=== PATIENT | female | born 1985 | race Caucasian/White ===

== ENCOUNTER 2016-05-25 16:28 | Emergency (ER) | payer MEDICAID ==
[2016-05-25] MEDS ORDERED: SODIUM CHLORIDE 0.9% 1,000 ML IV ONE (16:55)
[2016-05-25] MEDS ORDERED: MAGNESIUM SULFATE 2 GRAM 50 ML IV ONE ×2 (16:55→16:59)
[2016-05-25] MEDS ORDERED: diphenhydrAMINE INJ 50 MG/ML VIAL IVP STA (17:01)
[2016-05-25] MEDS ORDERED: PROCHLORPERAZINE 10 MG/2 ML VIAL IVP STA (17:01)
[2016-05-25] MEDS ORDERED: KETOROLAC 30 MG/ML VIAL IVP STA (17:01)
[2016-05-25] MEDS ORDERED: PROCHLORPERAZINE 10 MG/2 ML VIAL ONE (17:10)
[2016-05-25] MEDS ORDERED: diphenhydrAMINE INJ 50 MG/ML VIAL ONE (17:10)
[2016-05-25] MEDS ORDERED: KETOROLAC 30 MG/ML VIAL ONE (17:10)
== END 2016-05-25 18:30 | disposition home or self-care (01) ==
DX: G43.909 Migraine, unspecified, not intractable, without status migrainosus (principal); F17.200 Nicotine dependence, unspecified, uncomplicated

== ENCOUNTER 2016-08-19 08:00 | Outpatient (CLI) | payer MEDICAID ==
[2016-08-22 15:48] LABS: TEST RESULT REPORT (())
== END 2016-08-19 08:01 | disposition home or self-care (01) ==
LOC: LAB.R 08:00
PROVIDERS: ATTEND Nurse Practitioner Family
DX: R19.7 Diarrhea, unspecified (principal)
CPT/HCPCS: 81599

== ENCOUNTER 2016-08-19 11:03 | Outpatient (CLI) | payer MEDICAID | END 2016-08-19 11:04 | disposition home or self-care (01) | DX: R19.7 Diarrhea, unspecified (principal) ==

== ENCOUNTER 2017-07-17 20:09 | Emergency (ER) | payer MEDICAID ==
--- NOTE | 2017-07-17 21:04 | ED Physician Documentation ---
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 HEENT: Tonsil/Adenoidectomy - Present Medications Home Medications: Ambulatory Orders Medication Instructions Recorded Confirmed Cephalexin [Keflex] 500 mg PO QID #27 capsule 07/17/17 oxyCODONE [Roxicodone] 5 mg PO Q4-6H PRN #14 tablet 07/17/17 - Allergies Allergies/Adverse Reactions: Allergies Allergy/AdvReac Type Severity Reaction Status Date / Time acetaminophen [From Tylenol] Allergy Severe Edema Verified 07/17/17 20:14 meperidine HCl * Allergy Severe Edema Verified 07/17/17 20:27 [From Demerol] Penicillins Allergy Intermediate Rash Verified 07/17/17 20:14 amitriptyline [Amitriptyline] AdvReac Severe Dizziness Verified 07/17/17 20:14 - Social History Does the pt smoke?: Yes Smoking Status: Current every day smoker Does the pt drink ETOH?: Yes ETOH Use: Liquor Does the pt have substance abuse?: Yes Substance Use and Type: Marijuana - Immunizations Immunizations are current?: Yes - POLST Patient has POLST: No Results - Vitals Vitals: Vital Signs - 24 hr 07/17/17 20:12 Temperature 36.0 C L Heart Rate 98 Respiratory 18 Rate Blood Pressure 158/101 H O2 Saturation 100 Oxygen O2 Source Room air Departure - Departure Disposition: 01 Home, Self Care Clinical Impression: Pain, dental Condition: Good Instructions: ED Tooth Pain Prescriptions: Cephalexin [Keflex] 500 mg PO QID #27 capsule oxyCODONE [Roxicodone] 5 mg PO Q4-6H PRN #14 tablet PRN Reason: Pain Comments: Follow up with a dentist.
--- NOTE | 2017-07-17 21:26 | ED Physician Documentation ---
PD HPI HEENT - Stated complaint Stated Complaint: TOOTHACHE - Chief complaint Chief Complaint: Heent - History obtained from History obtained from: Patient - History of Present Illness Timing - onset: How many weeks ago (1) Timing - details: Gradual onset Pain level now: 7 Location: Tooth Improves: Nothing Associated symptoms: No: Fever Recently seen: Not recently seen - Additional information Additional information: c/o 1 week dental pain right upper. 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 HEENT: Tonsil/Adenoidectomy - Present Medications Home Medications: Ambulatory Orders Medication Instructions Recorded Confirmed Cephalexin [Keflex] 500 mg PO QID #27 capsule 07/17/17 oxyCODONE [Roxicodone] 5 mg PO Q4-6H PRN #14 tablet 07/17/17 - Allergies Allergies/Adverse Reactions: Allergies Allergy/AdvReac Type Severity Reaction Status Date / Time acetaminophen [From Tylenol] Allergy Severe Edema Verified 07/17/17 20:14 meperidine HCl * Allergy Severe Edema Verified 07/17/17 20:27 [From Demerol] Penicillins Allergy Intermediate Rash Verified 07/17/17 20:14 amitriptyline [Amitriptyline] AdvReac Severe Dizziness Verified 07/17/17 20:14 - Social History Does the pt smoke?: Yes Smoking Status: Current every day smoker Does the pt drink ETOH?: Yes ETOH Use: Liquor Does the pt have substance abuse?: Yes Substance Use and Type: Marijuana - Immunizations Immunizations are current?: Yes - POLST Patient has POLST: No PD ED PE NORMAL - Vitals Vital signs reviewed: Yes - General General: Alert and oriented X 3, No acute distress, Well developed/nourished - HEENT HEENT: Moist mucous membranes, Other (no swelling noted externally) PD ED PE EXPANDED - HEENT HEENT Visual: 1 - swelling, tenderness Results - Vitals Vitals: Oxygen O2 Source Room air PD MEDICAL DECISION MAKING - ED course Complexity details: considered differential, d/w patient Departure - Departure Disposition: 01 Home, Self Care Clinical Impression: Pain, dental Condition: Good Instructions: ED Tooth Pain Prescriptions: Cephalexin [Keflex] 500 mg PO QID #27 capsule oxyCODONE [Roxicodone] 5 mg PO Q4-6H PRN #14 tablet PRN Reason: Pain Comments: Follow up with a dentist. Discharge Date/Time: 07/17/17 21:36
[2017-07-17] MEDS ORDERED: oxyCODONE 5 MG TABLET PO STA (21:31)
[2017-07-17] MEDS ORDERED: cephALEXin 250 MG CAPSULE PO STA (21:32)
[2017-07-17 21:33] VITALS: BP 131/71
== END 2017-07-17 21:36 | disposition home or self-care (01) ==
LOC: ED 20:09
DX: K08.89 Other specified disorders of teeth and supporting structures (principal); F17.200 Nicotine dependence, unspecified, uncomplicated
CPT/HCPCS: 99283; A9270

== ENCOUNTER 2017-08-03 16:18 | Emergency (ER) | payer MEDICAID ==
--- NOTE | 2017-08-03 17:48 | ED Physician Documentation ---
PD HPI SKIN - Stated complaint Stated Complaint: LFT CALF PX/RASH - Chief complaint Chief Complaint: Wound - History obtained from History obtained from: Patient - History of Present Illness Timing - onset: Yesterday Timing - duration: Days (1) Timing - details: Gradual onset, Still present Location: LLE Quality / character: Itchy, Discolored, Raised, Swelling Contributing factors: Other (had a tattoo placed 4 days ago) Similar symptoms before: Has not had sx before Recently seen: Not recently seen - Additional information Additional information: 31-year-old female had a tattoo placed on her calf 4 days ago and yesterday she began developed some redness and itching to the area she has this reaction only to the top portion of the tattoo. There are areas of the color pigment that appear involved with a reaction but the remaining of the involved in this looks entirely normal. 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 HEENT: Tonsil/Adenoidectomy - Present Medications Home Medications: Ambulatory Orders Medication Instructions Recorded Confirmed Cephalexin [Keflex] 500 mg PO QID #28 capsule 08/03/17 Sulfamethoxazole/Trimethoprim 1 each PO BID #14 tablet 08/03/17 [Sulfamethoxazole-Tmp Ds Tablet] - Allergies Allergies/Adverse Reactions: Allergies Allergy/AdvReac Type Severity Reaction Status Date / Time acetaminophen [From Tylenol] Allergy Severe Edema Verified 08/03/17 16:51 meperidine HCl * Allergy Severe Edema Verified 08/03/17 16:51 [From Demerol] Penicillins Allergy Intermediate Rash Verified 08/03/17 16:51 amitriptyline [Amitriptyline] AdvReac Severe Dizziness Verified 08/03/17 16:51 - Social History Does the pt smoke?: Yes Smoking Status: Current every day smoker Does the pt drink ETOH?: Yes Does the pt have substance abuse?: Yes Substance Use and Type: Marijuana - Immunizations Immunizations are current?: Yes - POLST Patient has POLST: No PD ED PE NORMAL - Vitals Vital signs reviewed: Yes (hypertensive ) - General General: Alert and oriented X 3, No acute distress, Well developed/nourished - HEENT HEENT: Atraumatic, PERRL - Respiratory Respiratory: No respiratory distress - Derm Derm: Normal color, Warm and dry, No rash - Extremities Extremities: No deformity, No edema, Other (There is an area approximately 4 cm round in the superior portion of the tattoo that has been recently placed that is erythematous and boggy. There is reaction in the pigment portion of this and this is only in the area where the erythema is. The other portion of the tattoo looks entirely normal.) - Neuro Neuro: Alert and oriented X 3, No motor deficit, No sensory deficit, Normal speech Eye Opening: Spontaneous Motor: Obeys Commands Verbal: Oriented GCS Score: 15 - Psych Psych: Normal mood, Normal affect Results - Vitals Vitals: Vital Signs - 24 hr 08/03/17 08/03/17 16:23 17:48 Temperature 36.6 C 36.4 C L Heart Rate 97 82 Respiratory 16 17 Rate Blood Pressure 129/95 H 141/63 H O2 Saturation 94 98 Oxygen O2 Source Room air PD MEDICAL DECISION MAKING - ED course Complexity details: considered differential, d/w patient ED course: 31-year-old female with cellulitis to a recently placed tattoo does not appear to have reaction to the pigment itself. She is placed on Septra and Keflex and is expected to improve rapidly. Departure - Departure Disposition: 01 Home, Self Care Clinical Impression: Cellulitis Qualifiers: Site of cellulitis: extremity Site of cellulitis of extremity: lower extremity Laterality: left Qualified Code(s): L03.116 - Cellulitis of left lower limb Condition: Stable Instructions: ED Infec Skin Cellulitis Follow-Up: [facility] [Provider Group] Prescriptions: Cephalexin [Keflex] 500 mg PO QID #28 capsule Sulfamethoxazole/Trimethoprim [Sulfamethoxazole-Tmp Ds Tablet] 1 each PO BID # 14 tablet
[2017-08-03 17:49] VITALS: BP 141/63
[2017-08-03] MEDS ORDERED: CEPHALEXIN 250 MG Prepack 8 PO ONE (17:49)
[2017-08-03] MEDS ORDERED: SULFAM/TRIM 800/160 Prepack 2 PO ONE (17:49)
== END 2017-08-03 18:11 | disposition home or self-care (01) ==
LOC: ED 16:18
DX: L03.116 Cellulitis of left lower limb (principal); F17.200 Nicotine dependence, unspecified, uncomplicated
CPT/HCPCS: 99283

== ENCOUNTER 2021-05-26 17:52 | Emergency (ER) | payer MEDICAID ==
[2021-05-26 18:04] VITALS: BP 137/88
[2021-05-26] MEDS ORDERED: CLINDAMYCIN 150 MG CAPSULE PO STA (18:11)
--- NOTE | 2021-05-26 18:13 | ED Physician Documentation ---
History of Present Illness - Stated complaint Stated Complaint: MOUTH PAIN - Chief complaint Chief Complaint: Trauma Hd/Nk - History obtained from History obtained from: Patient (35-year-old woman with about 2 and half weeks of worsening and severe left mandibular dental pain with mild swelling. 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 HEENT: Tonsil/Adenoidectomy - Present Medications Home Medications: Ambulatory Orders Medication Instructions Recorded Confirmed Naproxen Sodium [Aleve] 1 tab ORAL Q6HR 05/26/21 05/26/21 clindamycin HCL [Cleocin HCl] 300 mg PO QID #28 cap 05/26/21 oxyCODONE [Roxicodone] 5 mg PO Q4-6H PRN #15 tablet 05/26/21 - Allergies Allergies/Adverse Reactions: Allergies Allergy/AdvReac Type Severity Reaction Status Date / Time acetaminophen [From Tylenol] Allergy Severe Edema Verified 08/03/17 16:51 meperidine HCl * Allergy Severe Edema Verified 08/03/17 16:51 [From Demerol] Penicillins Allergy Intermediate Rash Verified 08/03/17 16:51 amitriptyline [Amitriptyline] AdvReac Severe Dizziness Verified 08/03/17 16:51 - Social History Does the pt smoke?: Yes Smoking Status: Current every day smoker Does the pt drink ETOH?: Yes Does the pt have substance abuse?: Yes - Immunizations Immunizations are current?: Yes - POLST Patient has POLST: No PD ED PE NORMAL - Vitals Vital signs reviewed: Yes - General General: Alert and oriented X 3 - HEENT HEENT: Other (Is uncomfortable, her teeth actually do not look that bad but is quite tender to the last remaining mandibular molar on the left. No sublingual edema or facial swelling, no trismus.) - Neck Neck: Supple, no meningeal sign, No bony TTP - Neuro Neuro: Alert and oriented X 3, Normal speech Results - Vitals Vitals: Vital Signs - 24 hr 05/26/21 18:00 Temperature 37.4 C Heart Rate 102 H Respiratory 18 Rate Blood Pressure 137/88 H O2 Saturation 97 Oxygen O2 Source Room air Departure - Departure Disposition: 01 Home, Self Care Clinical Impression: Pain, dental Condition: Good Record reviewed to determine appropriate education?: Yes Instructions: ED Abscess Tooth Prescriptions: clindamycin HCL [Cleocin HCl] 300 mg PO QID #28 cap oxyCODONE [Roxicodone] 5 mg PO Q4-6H PRN #15 tablet PRN Reason: Pain Comments: I sent your prescriptions electronically to [email or web address] in [place]. I am prescribing a short course of narcotic pain medication for you. These are potentially dangerous and addictive medications that should be used carefully. These medications may constipate you. Take an qach-tvk-ctpifly stool softener (docusate) twice daily with plenty of water while taking these medications. If you go 24 hours without a bowel movement, take ohhk-lgv-[id number] miralax, per package instructions. Do not drink or drive while taking these medications. If you received narcotic or sedating medications while in the emergency department, do not drive for 24 hours. Store this medication in a safe, secure place and out of reach of children. It is a violation of federal law to give or sell this medication to another person or to use in a manner other than prescribed. The ED will not refill narcotic prescriptions, including prescriptions lost or stolen. To dispose of unwanted medications: 1. [facility] [address] in [place] has a medication drop box. They accept prescription medications (in pill form) Friday through Friday 9:00 a.m. to 5:00 p.m. 2. [facility] [employer] accepts prescription medications (in pill form only) for disposal year round. Call for more information. 3. Contact the [facility] for the next [facility] sponsored prescription drug collection event. , [phone], or [phone]; Note that many narcotic pain relievers also contain Tylenol/acetaminophen. Please ensure that your total dose of acetaminophen from all sources does not exceed 3 g (3000 mg) per day. It is very important that you follow-up with a dentist. When it comes to dental problems like yours, the emergency department can only offer a short-term solution to your long-term problem. A couple of low cost options for dental care include: [facility] in [place], calls [phone] for an appointment Or [facility] in [place], call [phone] for an appointment.
== END 2021-05-26 18:17 | disposition home or self-care (01) ==
LOC: ED 17:52
DX: K08.89 Other specified disorders of teeth and supporting structures (principal); F17.200 Nicotine dependence, unspecified, uncomplicated
CPT/HCPCS: 99281; 99282; A9270

== ENCOUNTER 2021-06-05 09:35 | Emergency (ER) | payer MEDICAID ==
[2021-06-05 09:47] VITALS: BP 146/97
--- NOTE | 2021-06-05 09:47 | ED Physician Documentation ---
PD HPI LOWER EXT INJURY - Stated complaint Stated Complaint: RT FT TOE INJ - Chief complaint Chief Complaint: Ext Problem - History obtained from History obtained from: Patient - History of Present Illness PD HPI LOW EXT INJURY LOCATION: Right, Foot, Toe (base of great toe) Type of injury: Blunt / blow (stumbled and almost fell, with toe jamming into concrete. Pain base of great toe after and worse today.) Timing - onset: Yesterday Timing - details: Abrupt onset, Still present Worsened by: Moving, Palpating Associated symptoms: Swelling. 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 HEENT: Tonsil/Adenoidectomy - Present Medications Home Medications: Ambulatory Orders Medication Instructions Recorded Confirmed Naproxen Sodium [Aleve] 1 tab ORAL Q6HR 05/26/21 05/26/21 clindamycin HCL [Cleocin HCl] 300 mg PO QID #28 cap 05/26/21 oxyCODONE [Roxicodone] 5 mg PO Q4-6H PRN #15 tablet 05/26/21 - Allergies Allergies/Adverse Reactions: Allergies Allergy/AdvReac Type Severity Reaction Status Date / Time acetaminophen [From Tylenol] Allergy Severe Edema Verified 06/05/21 09:42 meperidine HCl * Allergy Severe Edema Verified 06/05/21 09:42 [From Demerol] Penicillins Allergy Intermediate Rash Verified 06/05/21 09:42 amitriptyline [Amitriptyline] AdvReac Severe Dizziness Verified 06/05/21 09:42 - Social History Does the pt smoke?: Yes Smoking Status: Current every day smoker Does the pt drink ETOH?: Yes Does the pt have substance abuse?: Yes - Immunizations Immunizations are current?: Yes - POLST Patient has POLST: No PD ED PE NORMAL - Vitals Vital signs reviewed: Yes - General General: Alert and oriented X 3, No acute distress (but does seem uncomfortable due to toe movement, walking to room favoring no pressure on toes. ), Well developed/nourished - Derm Derm: Normal color, Warm and dry - Extremities Extremities: Other (right great toe tender at proximal toe and MTP area without obvious deformity. No redness of the skin. Ankle and proximal foot not tender. ) - Neuro Neuro: Alert and oriented X 3, No motor deficit, Normal speech Results - Vitals Vitals: Vital Signs - 24 hr 06/05/21 09:42 Temperature 36.7 C Heart Rate 84 Respiratory 18 Rate Blood Pressure 146/97 H O2 Saturation 99 Oxygen O2 Source Room air - Rads (name of study) right foot Radiology: Prelim report reviewed (no fractures (some chronic cortical irregularity, does not appear acute fracture).), See rad report PD MEDICAL DECISION MAKING - ED course Complexity details: reviewed results, considered differential, d/w patient Departure - Departure Disposition: 01 Home, Self Care Clinical Impression: Toe sprain Qualifiers: Encounter type: initial encounter Qualified Code(s): S93.509A - Unspecified sprain of unspecified toe(s), initial encounter Condition: Stable Record reviewed to determine appropriate education?: Yes Instructions: ED Sprain Foot Comments: At the great toe. Activity as tolerated. Rest today and tomorrow. Ice elevate and rest the foot often today. Ibuprofen or naproxen 2-3 times daily for the next several days. No fractures are seen on your x-ray. I would anticipate improvement over the next few days. Forms: Activity restrictions Discharge Date/Time: 06/05/21 10:13
[2021-06-05] MEDS ORDERED: IBUPROFEN 800 MG TABLET PO STA (09:59)
--- NOTE | 2021-06-05 10:32 | XRAY Report ---
PROCEDURE: Foot 3 View RT INDICATIONS: Trauma TECHNIQUE: 3 views of the foot were acquired. COMPARISON: None FINDINGS: Bones: Minimal cortical irregularity over the medial margin of the proximal margin of the right grea t toe distal phalanx. It appears to be corticated and likely chronic. Otherwise, no definite acute fr actures. No dislocations. Bipartite medial sesamoid. No suspicious bony lesions. Small plantar calc aneal spur. Soft tissues: No tibiotalar joint effusion. Achilles tendon appears normal. Right forefoot soft ti ssue swelling. IMPRESSION: Soft tissue swelling of the right foot without definite fracture. Normal alignment. Minimal cortical irregularity over the medial margin at the base of the right great toe distal phalanx. This appears c hronic but recommend correlation with visible examination for point tenderness. If there is persistent clinical concern for a radiographically occult fracture, recommend immobilizat ion and repeat imaging in 10 to 14 days. Reviewed by: Adrian Flores MD on 06/05/2021 10:31 AM [facility] Approved by: Adrian Flores MD on 06/05/2021 10:31 AM PST Station ID: [id number]
== END 2021-06-05 10:13 | disposition home or self-care (01) ==
LOC: ED 09:35
DX: S93.509A Unspecified sprain of unspecified toe(s), initial encounter (principal); W22.09XA Striking against other stationary object, initial encounter; F17.200 Nicotine dependence, unspecified, uncomplicated
CPT/HCPCS: 73630; 99282; 99283; A9270

== ENCOUNTER 2022-10-21 15:03 | Emergency (ER) | payer MEDICAID ==
[2022-10-21 15:19] VITALS: BP 148/71
--- NOTE | 2022-10-21 15:32 | XRAY Report ---
PROCEDURE: Foot 3 View LT INDICATIONS: Trauma TECHNIQUE: 3 views of the foot were acquired. COMPARISON: None. FINDINGS: Bones: No fractures or dislocations. No suspicious bony lesions. Soft tissues: No suspicious soft tissue calcifications or masses. IMPRESSION: No acute bony abnormality. Reviewed by: Manny Walters on 10/21/2022 3:31 PM PDT Approved by: Manny Walters on 10/21/2022 3:31 PM PDT Station ID: [id number]
--- NOTE | 2022-10-21 15:56 | ED Physician Documentation ---
PD HPI LOWER EXT INJURY - Stated complaint Stated Complaint: LT FOOT INJ - Chief complaint Chief Complaint: Trauma Ext - History obtained from History obtained from: Patient - Additional information Additional information: She stepped wrong yesterday and injured the medial side of her left foot. She did not fall. Pain is moderate to severe. She has allergies to both Tylenol and ibuprofen. No other injuries. 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 HEENT: Tonsil/Adenoidectomy - Present Medications Home Medications: Ambulatory Orders Medication Instructions Recorded Confirmed Naproxen Sodium [Aleve] 1 tab ORAL Q6HR 05/26/21 05/26/21 clindamycin HCL [Cleocin HCl] 300 mg PO QID #28 cap 05/26/21 oxyCODONE [Roxicodone] 5 mg PO Q4-6H PRN #15 tablet 05/26/21 oxyCODONE [Roxicodone] 5 mg PO Q4-6H PRN #15 tablet 10/21/22 - Allergies Allergies/Adverse Reactions: Allergies Allergy/AdvReac Type Severity Reaction Status Date / Time acetaminophen [From Tylenol] Allergy Severe Edema Verified 06/05/21 09:42 meperidine HCl * Allergy Severe Edema Verified 06/05/21 09:42 [From Demerol] Penicillins Allergy Intermediate Rash Verified 06/05/21 09:42 amitriptyline [Amitriptyline] AdvReac Severe Dizziness Verified 06/05/21 09:42 - Social History Does the pt smoke?: Yes Smoking Status: Current every day smoker Does the pt drink ETOH?: Yes Does the pt have substance abuse?: Yes - Immunizations Immunizations are current?: Yes - POLST Patient has POLST: No PD ED PE NORMAL - Vitals Vital signs reviewed: Yes - General General: Alert and oriented X 3, No acute distress - Extremities Extremities: Other (She is focally tender over the medial foot proximally kind of over the tibialis anterior tendon. There is no deformity. No ankle tenderness. She is a lot of pain with forced external rotation of the left foot. Normal DP/PT pulses.) - Neuro Neuro: Alert and oriented X 3, Normal speech Results - Vitals Vitals: Vital Signs - 24 hr 10/21/22 15:12 Temperature 36.5 C Heart Rate 62 Respiratory 16 Rate Blood Pressure 148/71 H O2 Saturation 97 Oxygen O2 Source Room air - Rads (name of study) Three-view x-ray left foot is normal Relevant Findings:: Final report received, EMP independent interpretation of test PD Medical Decision Making - ED course ED course: Seems like a tibialis anterior tendinitis with negative x-ray. Placed in a walking boot and she requested some prescription pain medication noting that she cannot take ibuprofen or Tylenol. She also needed a work note for light duty. Departure - Departure Disposition: 01 Home, Self Care Clinical Impression: Sprain of foot, left Qualifiers: Encounter type: initial encounter Qualified Code(s): S93.602A - Unspecified sprain of left foot, initial encounter Condition: Good Record reviewed to determine appropriate education?: Yes Instructions: ED Sprain Foot Prescriptions: oxyCODONE [Roxicodone] 5 mg PO Q4-6H PRN #15 tablet PRN Reason: Pain Comments: I sent your prescription electronically to [facility] in [place]. Follow-up with your doctor in 1 week if not improved. Return for new or worsening symptoms. Examination is consistent with probably a tibialis anterior tendinitis. Wear the boot as needed for comfort but she do not need to wear it in bed or when just sitting around. I am prescribing a short course of narcotic pain medication for you. These are potentially dangerous and addictive medications that should be used carefully. These medications may constipate you. Take an vipm-rld-xypabkl stool softener (docusate) twice daily with plenty of water while taking these medications. If you go 24 hours without a bowel movement, take fopb-[id number]-tfnyaeb miralax, per package instructions. Do not drink or drive while taking these medications. If you received narcotic or sedating medications while in the emergency department, do not drive for 24 hours. Store this medication in a safe, secure place and out of reach of children. It is a violation of federal law to give or sell this medication to another person or to use in a manner other than prescribed. The ED will not refill narcotic prescriptions, including prescriptions lost or stolen. To dispose of unwanted medications: 1. [facility]'s Office provides a drop box for medication in pill form only (no liquids) 8:00 am to 4:30 p.m. Friday-Friday in the lobby of [facility], [address] Empty pills into ziplock bag before disposal. Call [phone] for information. 2.[employer] is a free service available to all [facility] residents. Go to [email or web address]/[email or web address]/ Note that many narcotic pain relievers also contain Tylenol/acetaminophen. Please ensure that your total dose of acetaminophen from all sources does not exceed 3 g (3000 mg) per day. Forms: PCP List, Activity restrictions
== END 2022-10-21 16:19 | disposition home or self-care (01) ==
LOC: ED 15:03
DX: S93.602A Unspecified sprain of left foot, initial encounter (principal); X50.1XXA Overexertion from prolonged static or awkward postures, initial encounter
CPT/HCPCS: 99283; 99284

== ENCOUNTER 2023-01-01 09:51 | Emergency (ER) | payer MEDICAID ==
[2023-01-01 10:07] VITALS: BP 142/89; O2SAT 92
--- NOTE | 2023-01-01 10:26 | ED Physician Documentation ---
PD HPI UPPER EXT INJURY - Stated complaint Stated Complaint: L ARM PX - Chief complaint Chief Complaint: Ext Problem - History obtained from History obtained from: Patient - History of Present Illness Location: Left, Shoulder Type of injury: Twist (she states she was lifting moderately heavy box overhead to a shelf at work and noted onset of left shoulder pain with pop type feeling. Pain with movement sicne. WOrse with lifting arm. Not as much with rotation.). No: Fall, Blunt / blow Where injury occurred: Work Timing - onset: Today (2) Timing - duration: Days (2) Timing - details: Abrupt onset, Still present Improved by: Rest Worsened by: Moving, Palpating (at AC area of the shoulder) Associated symptoms: No: Weakness, Numbness, Swelling Similar symptoms before: Has not had sx before Review of Systems Constitutional: denies: Fever, Chills Nose: denies: Rhinorrhea / runny nose, Congestion Throat: denies: Sore throat Respiratory: denies: Cough Skin: denies: Rash, Lesions Musculoskeletal: denies: Neck pain PD PAST MEDICAL HISTORY - Past Medical History Respiratory: Asthma Psych: Depression, Anxiety - Past Surgical History 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 HEENT: Tonsil/Adenoidectomy - Present Medications Home Medications: Ambulatory Orders Medication Instructions Recorded Confirmed Naproxen Sodium [Aleve] 1 tab ORAL Q6HR 05/26/21 05/26/21 clindamycin HCL [Cleocin HCl] 300 mg PO QID #28 cap 05/26/21 oxyCODONE [Roxicodone] 5 mg PO Q4-6H PRN #15 tablet 05/26/21 oxyCODONE [Roxicodone] 5 mg PO Q4-6H PRN #15 tablet 10/21/22 oxyCODONE [Roxicodone] 5 mg PO Q6H PRN #20 tablet 01/01/23 oxyCODONE [Roxicodone] 5 mg PO Q6H PRN #20 tablet 01/01/23 - Allergies Allergies/Adverse Reactions: Allergies Allergy/AdvReac Type Severity Reaction Status Date / Time acetaminophen [From Tylenol] Allergy Severe Edema Verified 06/05/21 09:42 meperidine HCl * Allergy Severe Edema Verified 06/05/21 09:42 [From Demerol] Penicillins Allergy Intermediate Rash Verified 06/05/21 09:42 amitriptyline [Amitriptyline] AdvReac Severe Dizziness Verified 06/05/21 09:42 - Social History Does the pt smoke?: Yes Smoking Status: Current every day smoker Does the pt drink ETOH?: Yes Does the pt have substance abuse?: Yes - Immunizations Immunizations are current?: Yes - POLST Patient has POLST: No PD ED PE NORMAL - Vitals Vital signs reviewed: Yes - General General: Alert and oriented X 3, Well developed/nourished, Other (appears uncomfortable with any shoulder movment. Guarding ROM. ) - Neck Neck: Supple, no meningeal sign, No bony TTP - Derm Derm: Normal color, Warm and dry, No rash - Extremities Extremities: Other (left shoulder with tenderness at AC area without deformity. Pain with passive distraction of upper arm downward. Rotational movement of arm not too painful. Abduction hurts most. Not tender in scapular area. ) - Neuro Neuro: No motor deficit, No sensory deficit Results - Vitals Vitals: Oxygen O2 Source Room air - Rads (name of study) left shoulder Relevant Findings:: Prelim report reviewed, EMP independent interpretation of test (no acute bony process. ) PD Medical Decision Making - ED course Complexity details: reviewed results, considered differential (mechaism could be rotator cuff or muscle strain, AC strain. Her area of pain/tenderness and exacerbating movement suggest more deltoid and AC strain more that rotator cuff but still keep that in consideration. Sling, NSAIDs, pain meds, f/u ortho. ), d/w patient Departure - Departure Disposition: 01 Home, Self Care Clinical Impression: Left shoulder strain Qualifiers: Encounter type: initial encounter Qualified Code(s): S46.912A - Strain of unspecified muscle, fascia and tendon at shoulder and upper arm level, left arm, initial encounter Acromioclavicular (joint) (ligament) sprain Qualifiers: Encounter type: initial encounter Laterality: left Qualified Code(s): S43.52XA - Sprain of left acromioclavicular joint, initial encounter Condition: Stable Record reviewed to determine appropriate education?: Yes Instructions: ED Sprain AC Joint Follow-Up: Orthopedic Care [Provider Group] Prescriptions: oxyCODONE [Roxicodone] 5 mg PO Q6H PRN #20 tablet PRN Reason: Pain oxyCODONE [Roxicodone] 5 mg PO Q6H PRN #20 tablet PRN Reason: Pain Comments: This sounds more likely to be a strain of the muscles at the shoulder or the ligament at the acromioclavicular joint. It sounds less like a rotator cuff injury. The treatment for all of these would be fairly similar initially. Sling for the shoulder to help reduce motion and support it. Have it out of the sling with gentle range of motion several times daily to keep it from getting stiff and. No overhead reaching, push pull, heavy lifting for 7 to 10 days. Use anti-inflammatory such as Aleve or ibuprofen 2 to 3 tablets with food 3 times daily for the next week. Recheck with orthopedic clinic or your primary care if not improving well over the next week or so. I sent your prescriptions to [facility] in [place]. I am prescribing a short course of narcotic pain medication for you. These are potentially dangerous and addictive medications that should be used carefully. These medications may constipate you. Take an [id number] stool softener such as docusate twice daily with plenty of water while taking these medications. If you go 24 hours without a bowel movement, take [id number] MiraLAX, per package instructions. Do not drink or drive while taking these medications. If you received narcotic or sedating medications while in the emergency department do not drive for 24 hours. Store this medication in a safe, secure place and out of reach of children. It is a violation of federal law to give or sell this medication to another person or to use in a manner other than prescribed. The ED will not refill narcotic prescriptions, including prescriptions lost or stolen. You can dispose of unwanted medications at the [facility]'s office or at several pharmacies such as [facility]. Forms: PCP List, Activity restrictions Discharge Date/Time: 01/01/23 11:02
--- NOTE | 2023-01-01 10:27 | XRAY Report ---
PROCEDURE: Shoulder 3 View LT INDICATIONS: pain TECHNIQUE: 3 views of the shoulder were acquired. COMPARISON: None. FINDINGS: Limited evaluation secondary to body habitus. Bones: No fractures or dislocations. No suspicious bony lesions. Visualized ribs appear intact. Soft tissues: No suspicious soft tissue calcifications. The visualized lungs are within normal limi ts. IMPRESSION: No definite acute bony abnormality. If pain persists with conservative management, consider repeat ra diographs in 10-14 days or cross-sectional imaging. Reviewed by: German Hernandez MD on 01/01/2023 10:26 AM PDT Approved by: German Hernandez MD on 01/01/2023 10:26 AM PDT Station ID: [id number]
[2023-01-01] MEDS ORDERED: IBUPROFEN 800 MG TABLET PO STA (10:42)
== END 2023-01-01 11:02 | disposition home or self-care (01) ==
LOC: ED 09:51
DX: S46.912A Strain of unspecified muscle, fascia and tendon at shoulder and upper arm level, left arm, initial encounter (principal); X50.0XXA Overexertion from strenuous movement or load, initial encounter; Y99.0 Civilian activity done for income or pay; F17.200 Nicotine dependence, unspecified, uncomplicated
CPT/HCPCS: 73030; 99283; 99284; A9270